=== PATIENT | female | born 1985 | race Caucasian/White ===

== ENCOUNTER 2024-09-21 09:52 | Inpatient (IN) | payer OTHER ==
[~2024-09-21] VITALS: Ht 162.6 cm; Wt 92.1 kg
[2024-09-21] MEDS ORDERED: SYNTHROID75 MCG PO (11:03)
[2024-09-21 11:33] VITALS: BP 115/76
[2024-10-01] MEDS ORDERED: DEXAMETHASONE SODIUM PHOSPHATE 4 MG/ML VIAL ONE (12:28)
[2024-10-01] MEDS ORDERED: ENALAPRILAT DIHYDRATE 1.25 MG/ML VIAL IV PRN (14:30)
[2024-10-01] MEDS ORDERED: ONDANSETRON HCL 2 MG/ML VIAL IV PRN (14:30)
[2024-10-01] MEDS ORDERED: MORPHINE SULFATE 4 MG/ML VIAL IV ONE (14:55)
[2024-10-01] MEDS ORDERED: GABAPENTIN 100 MG CAPSULE PO SCH (17:00)
[2024-10-01] MEDS ORDERED: TRAMADOL HCL 50 MG TABLET PO SCH (17:00)
[2024-10-01] MEDS ORDERED: ACETAMINOPHEN 500 MG GEL..CAP PO SCH (17:00)
[2024-10-02] VITALS: BP 116/76; O2SAT 96
[2024-10-02] MEDS ORDERED: LEVOTHYROXINE SODIUM 75 MCG TABLET PO SCH (06:00)
[2024-10-02 08:00] VITALS: BP 116/70; O2SAT 97
[2024-10-02] MEDS ORDERED: CYCLOBENZAPRINE HCL 5 MG TABLET PO SCH (09:00)
== END 2024-10-02 12:00 | disposition home or self-care (01) | DRG 627 ==
LOC: O/R 10-01 06:40 → SURH 10-01 12:00
PROVIDERS: ADMIT Surgery; ATTEND Surgery
PROC: 0GTH0ZZ Resection of Right Thyroid Gland Lobe, Open Approach (ICD-10-PCS; principal; 2024-10-01 12:00)
DX: E06.3 Autoimmune thyroiditis (principal); C73 Malignant neoplasm of thyroid gland